=== PATIENT | male | born 1995 | race African-American/Black ===

== ENCOUNTER 2018-08-26 22:15 | Emergency (ER) ==
[~2018-08-26] VITALS: Ht 188 cm; Wt 99.8 kg
[2018-08-26 22:46] LABS: BASOPHILS # (AUTO) 0.1 /CMM (0.0-0.2); EOSINOPHILS % (AUTO) 0.5 % (0.0-6.0); HEMATOCRIT 42 % (39-51); HEMOGLOBIN 14.1 g/dL (13.5-17.5); LYMPHOCYTES % (AUTO) 23.1 % (20.0-44.0); MEAN CORPUSCULAR HGB CONC 34 g/dl (31.0-36.0); MEAN CORPUSCULAR VOLUME 83 fL (80-96); MONOCYTES # (AUTO) 1.4 /CMM (0.1-1.30); MONOCYTES % (AUTO) 10.7 % (2.0-12.0); NEUTROPHILS # (AUTO) 8.4 /CMM (1.8-8.9); NEUTROPHILS % (AUTO) 64.7 % (43.0-81.0); PLATELET COUNT (AUTO) 412 /CMM (150-450); RED BLOOD CELL COUNT(AUTO) 4.98 MIL/uL (4.5-6.0); WHITE BLOOD COUNT (AUTO) 12.9 K/uL (4.3-11.0)
[2018-08-26 22:52] LABS: CALCIUM, SERUM 9.1 mg/dL (8.5-10.1); CARBON DIOXIDE 31 mmol/L (21-32); CHLORIDE 102 mmol/L (98-107); CREATININE 0.9 mg/dL (0.6-1.3); GLUCOSE 81 mg/dL (74-106); POTASSIUM 3.6 mmol/L (3.5-5.1); SODIUM SERUM 140 mmol/L (136-145); UREA NITROGEN, BLOOD 8 mg/dL (7-18)
[2018-08-26 22:57] LABS: ALANINE AMINOTRANSFERASE 30 U/L (12-78); ALBUMIN 2.9 g/dL (3.4-5.0); ALCOHOL, BLOOD < 3 mg/dL (0-0); ALKALINE PHOSPHATASE 113 U/L (46-116); ASPARTATE AMINOTRANSFERASE 19 U/L (15-37); BILIRUBIN,DIRECT 0.1 mg/dL (0.0-0.2); BILIRUBIN,TOTAL 0.3 mg/dL (0.2-1.0); TOTAL PROTEIN, SERUM 7.4 g/dL (6.4-8.2)
[2018-08-26 22:59] LABS: ACETAMINOPHEN 0 ug/ml (10-30); SALICYLATE 0.9 mg/dL (2.8-20.0)
[2018-08-27 00:03] LABS: APPEARANCE,URINE Clear (CLEAR); BILIRUBIN,URINE Negative (NEGATIVE); BLOOD, URINE Negative Ery/uL (NEGATIVE); COLOR,URINE Yellow (YELLOW); KETONES,URINE Negative (NEGATIVE); LEUKOCYTE ESTERASE ,URINE Negative (NEGATIVE); NITRITE, URINE Negative (NEGATIVE); PH,URINE 6.5 (5.0-8.0); PROTEIN,URINE Negative (NEGATIVE); UGLUCOSE Negative (NEGATIVE)
--- NOTE | 2018-08-27 00:06 | NUR ---
urine collected and sent to the lab. Tripp PABON at the bed side.
[2018-08-27 00:38] LABS: BACTERIA,URINE Few /HPF (None Seen); RBC,URINE 0-2 /HPF (0-2)
[2018-08-27 00:39] LABS: MUCUS,URINE Moderate /LPF (None Seen); SQUAMOUS EPITHELIAL CELL,UR Rare /HPF (None Seen)
--- NOTE | 2018-08-27 01:08 | NUR ---
LAYING DOWN IN BED COMFORTABLY. WILL CONT TO MONITOR
--- NOTE | 2018-08-27 01:32 | NUR ---
[facility] JUSTIN SHETH INTAKE COORD, CARMEN PT ADMIT TO [place] [id number] [facility] [id number] [address] ARREAGA REPORT #[phone]
--- NOTE | 2018-08-27 01:40 | NUR ---
KYLE FLORIAN SPOKE TO CHASE MACDONALD [employer]IOR [employer] TRIP #[id number]
[2018-08-27 02:00] VITALS: BP 128/89
--- NOTE | 2018-08-27 02:15 | NUR ---
REPORT GIVEN TO GABRIEL AT [facility]
--- NOTE | 2018-08-27 02:31 | NUR ---
pt was picked up and transferred to the [facility] in stable condition. report given to paramedics. vss.
== END 2018-08-27 02:37 ==
LOC: ER 22:17
DX: R45.850 Homicidal ideations (principal); R44.0 Auditory hallucinations
CPT/HCPCS: 36415; 80048 ×2; 80076 ×2; 80305 ×2; 80307 ×2; 80329 ×2; 81001 ×2; 85025 ×2; 99285; G0480 ×2; 81000-TC